=== PATIENT | female | born 1990 | race American Indian/Alaskan Native ===

== ENCOUNTER 2020-10-20 06:35 | Emergency (ER) | payer SELFPAY | END 2020-10-20 07:00 | LOC: ED 06:35 | DX: R68.84 Jaw pain (principal); Z53.21 Procedure and treatment not carried out due to patient leaving prior to being seen by health care provider ==

== ENCOUNTER 2021-12-11 19:26 | Emergency (ER) | payer SELFPAY | END 2021-12-11 21:30 | disposition left against medical advice (07) | LOC: ED 19:26 | DX: Z11.3 Encounter for screening for infections with a predominantly sexual mode of transmission (principal); Z53.21 Procedure and treatment not carried out due to patient leaving prior to being seen by health care provider ==